=== PATIENT | female | born 1990 | race Hispanic/Latino ===

== ENCOUNTER 2024-06-11 13:08 | Emergency (ER) | payer OTHER ==
[2024-06-11 13:39] LABS: Specific Gravity 1.018 (1.005-1.030)
[2024-06-11 13:42] LABS: Absolute Lymphocytes (CBC) 1.3 K/uL (0.7-4.9); Absolute Monocytes 0.5 K/uL (0.1-1.3); Basophils % 0.4 % (0-1.3); Eosinophils % 0.3 % (0-4.4); Hematocrit 38.7 % (36.0-45.0); Lymphocytes % 13.2 % (15.3-44.8); MCH 20.5 pg (27.0-35.0); MPV 8.6 fL (7.6-11.3); Neutrophils % 81.1 % (41.7-73.7); Platelets 295 thou/uL (152-406); RBC Red Blood Cell Count 5.86 M/uL (3.86-4.86); Red Cell Distribution Width 16.9 % (12.1-15.2); Specific Gravity 1.018 (1.005-1.030); Sqamous Epithelial <5 /HPF (None Seen); Urine Bacteria <20 /HPF (<20); Urine Bilirubin NEGATIVE (Negative); Urine Blood Negative (Negative); Urine Clarity Turbid (Clear); Urine Color Light-Yellow (Yellow); Urine Culture Reflex Order NOT NEEDED; Urine Glucose NEGATIVE (Negative); Urine Ketones TRACE (Negative); Urine Microscopic Reflex YN ORDER UMIC; Urine Mucus Slight /HPF (None Seen); Urine Nitrite NEGATIVE (Negative); Urine Protein NEGATIVE (Negative); Urine RBC <5 /HPF (None Seen); Urine Urobilinogen Normal (Normal); Urine WBC <5 /HPF (<5); Urine WBC Clump Rare /HPF (None Seen)
[2024-06-11 14:10] LABS: Anisocytosis 1+; Blood Morphology Comment NOTED (NOT SEEN); Microcytosis 1+; Ovalocytes 1+; Platelet Estimate ADEQ; White Blood Cell Scan OK (OK)
[2024-06-11 14:13] LABS: Anion Gap 9.5 mEq/L (5.0-15.0); Potassium 3.5 mEq/L (3.5-5.1)
--- NOTE | 2024-06-11 14:29 | RAD REPORT ---
EXAMINATION: Transvaginal OB COMPARISON: None. HISTORY: ABD PAIN TECHNIQUE: Real-time ultrasound was performed through the pelvis. A transvaginal scan was performed t o better visualize the intrauterine contents and adnexa. FINDINGS: There is a single living intrauterine . Cardiac activity measured 119 BPM. There is no visible subchorionic hemorrhage. Both ovaries are visualized and appear unremarkable. There is no free fluid in the cul-de-sac. Measurements and Calculations: Torrey rump length 8 mm, consistent with a sonographic age of 6 weeks, 5 days. Estimated date of deli very is 01/30/2025 IMPRESSION: Single living intrauterine , with a composite sonographic age of 6 weeks, 5 days.
--- NOTE | 2024-06-11 14:40 | ER ---
Nurse's Notes [facility] Name: Joe Macias Age: 34 yrs Sex: Female : 1990 Arrival Date: 06/11/2024 Time: 13:08 Bed 12 Private MD: Diagnosis: Threatened Presentation: 06/11 13:15 Chief complaint: Patient states: Vaginal bleeding and cramping x 1 day, 8 weeks jl7 . 13:15 Coronavirus screen: At this time, the client does not indicate any symptoms associated jl7 with coronavirus-19. Ebola Screen: No symptoms or risks identified at this time. Initial Sepsis Screen: Does the patient meet any 2 criteria? No. Patient's initial sepsis screen is negative. Does the patient have a suspected source of infection? No. Patient's initial sepsis screen is negative. Risk Assessment: Do you want to hurt yourself or someone else? Patient reports no desire to harm self or others. Onset of symptoms was June 10, 2024. 13:15 Method Of Arrival: Ambulatory [facility] 13:15 Acuity: LEILANI 3 jl7 Triage Assessment: 13:22 General: Appears in no apparent distress. uncomfortable, Behavior is calm, cooperative, jl7 appropriate for age. Pain: Complains of pain in right lower quadrant and left lower quadrant Pain currently is 5 out of 10 on a pain scale. Quality of pain is described as crampy. : Reports vaginal bleeding that is spotty. 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 - Infectious Disease History:: Denies. - Social history:: Smoking status: Patient denies any tobacco usage or history of. Screenin:15 [facility] ED Fall Risk Assessment (Adult) History of falling in the last 3 months, rs5 including since admission No falls in past 3 months (0 pts) Confusion or Disorientation No (0 pts) Intoxicated or Sedated No (0 pts) Impaired Gait No (0 pts) Mobility Assist Device Used No (0 pt) Altered Elimination No (0 pt) Score/Fall Risk Level 0 - 2 = Low Risk Oriented to surroundings, Maintained a safe environment. Abuse screen: Denies threats or abuse. Nutritional screening: No deficits noted. Tuberculosis screening: No symptoms or risk factors identified. Assessment: 13:15 General: Appears in no apparent distress. comfortable, Behavior is calm, cooperative. rs5 Pain: Complains of pain in abdomen Pain currently is 3 out of 10 on a pain scale. Quality of pain is described as crampy, Is intermittent. Neuro: Level of Consciousness is awake, alert, obeys commands, Oriented to person, place, time, situation. Cardiovascular: Patient's skin is warm and dry. Respiratory: Airway is patent Respiratory effort is even, unlabored, Respiratory pattern is regular, symmetrical. GI: Abdomen is round non-distended, Abd is soft and non tender X 4 quads. : Reports vaginal bleeding that is. EENT: No signs and/or symptoms were reported regarding the EENT system. 13:15 Derm: Skin is intact, Skin is pink, warm \T\ dry. Musculoskeletal: Range of motion: rs5 intact in all extremities. 13:48 Reassessment: Patient and/or family updated on plan of care and expected duration. Pain rs5 level reassessed. Patient is alert, oriented x 3, equal unlabored respirations, skin warm/dry/pink. 14:33 Reassessment: Patient and/or family updated on plan of care and expected duration. Pain rs5 level reassessed. Patient is alert, oriented x 3, equal unlabored respirations, skin warm/dry/pink. Vital Signs: 13:15 BP 128 / 99; Pulse 68; Resp 17; Pulse Ox 100% ; Weight 77.11 kg; Height 5 ft. 4 in. ; jl7 Pain 5/10; 14:40 BP 127 / 81; Pulse 71; Resp 17; Pulse Ox 99% on R/A; rs5 13:15 Body Mass Index 29.18 (77.11 kg, 162.56 cm) jl7 13:15 Pain Scale: Adult jl7 ED Course: 13:11 Patient arrived in ED. im 13:11 [facility] Esteves [facility]C [facility] kb 13:11 Dino Tatum MD is Attending Physician. kb 13:15 Patient has correct armband on for positive identification. Placed in gown. Bed in low rs5 position. Call light in reach. Side rails up X2. 13:18 Adilson Valdez, RN is Primary Nurse. rs5 13:19 Radiology exam delayed due to test not completed at this time. aa4 13:22 Triage completed. jl7 13:22 Arm band placed on right wrist. jl7 14:11 US Transvaginal Ob In Process Unspecified. EDMS 14:40 Provided Education on: discharge instructions . rs5 14:48 No provider procedures requiring assistance completed. rs5 14:48 IV discontinued, intact, bleeding controlled, No redness/swelling at site. Pressure rs5 dressing applied. Administered Medications: No medications were administered Medication: 14:45 VIS not applicable for this client. rs5 Outcome: 14:40 Discharge ordered by . kb 14:48 Discharged to home rs5 14:48 Condition: stable 14:48 Discharge instructions given to patient, family, Instructed on discharge instructions, follow up and referral plans. Demonstrated understanding of instructions, follow-up care, 14:49 Patient left the ED. aa4 Signatures: Dispatcher [employer] EDAR Kasia Esteves, DATA ENTRY-C DATA ENTRY-CkNeena Peck aa4 Cherie Isbell, RN RN jl7 Adilson Valdez, RN RN rs5 Maria G Steele
--- NOTE | 2024-06-11 14:40 | EDPHYS ---
Physician Documentation [facility] Name: Joe Macias Age: 34 yrs Sex: Female : 1990 Arrival Date: 06/11/2024 Time: 13:08 Bed 12 Private MD: ED Physician Dino Tatum HPI: 06/11 13:27 This 34 yrs old Female presents to ER via Ambulatory with complaints of kb Vaginal Bleeding, + Preg <12wks, Abdominal Cramping. 13:27 Pt is a 34 year old female who presents for spotting and lower abd cramping that kb started yesterday. States she is 8 weeks and was concerned. First ob appt scheduled for 06/25/24. LMP beginning of April 2024. 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 - Infectious Disease History:: Denies. - Social history:: Smoking status: Patient denies any tobacco usage or history of. ROS: 13:27 Constitutional: As per HPI kb Exam: 13:27 Constitutional: This is a well developed, well nourished patient who is awake, alert, kb and in no acute distress. Head/Face: Normocephalic, atraumatic. ENT: Moist Mucous membranes Cardiovascular: Regular rate Respiratory: Respirations even and unlabored. No increased work of breathing. Talking in full sentences Abdomen/GI: Soft, non-tender. No distention Skin: Warm, dry with normal turgor. Normal color. MS/ Extremity: Pulses equal, no cyanosis. Neurovascular intact. Full, normal range of motion. Neuro: Awake and alert, GCS 15, oriented to person, place, time, and situation. Vital Signs: 13:15 BP 128 / 99; Pulse 68; Resp 17; Pulse Ox 100% ; Weight 77.11 kg; Height 5 ft. 4 in. ; jl7 Pain 5/10; 14:40 BP 127 / 81; Pulse 71; Resp 17; Pulse Ox 99% on R/A; rs5 13:15 Body Mass Index 29.18 (77.11 kg, 162.56 cm) jl7 13:15 Pain Scale: Adult jl7 MDM: 13:11 Medical Screening Exam initiated kb 13:27 Differential diagnosis: threatened Ab, ectopic . Data reviewed: vital signs, kb nurses notes. 14:39 Counseling: I had a detailed discussion with the patient and/or guardian regarding the kb historical points, exam findings, and any diagnostic results supporting the discharge/admit diagnosis, lab results, radiology results, the need for outpatient follow up, an OB/Gyne specialist, to return to the emergency department if symptoms worsen or persist or if there are any questions or concerns that arise at home. 06/11 13:11 Order name: Abo/rh Typing; Complete Time: 14:02 kb 06/11 13:11 Order name: Basic Metabolic Panel; Complete Time: 14:15 kb 06/11 13:11 Order name: CBC with Diff; Complete Time: 14:15 kb 06/11 13:11 Order name: Test, Urine; Complete Time: 13:53 kb 06/11 13:11 Order name: Quantitative Hcg; Complete Time: 14:15 kb 06/11 13:11 Order name: Urinalysis w/ reflexes; Complete Time: 13:53 kb 06/11 14:10 Order name: CBC Smear Scan; Complete Time: 14:15 EDMS 06/11 13:11 Order name: US Transvaginal Ob; Complete Time: 14:30 kb 06/11 13:11 Order name: IV Saline Lock; Complete Time: 13:48 kb 06/11 13:11 Order name: Labs collected and sent; Complete Time: 13:48 kb 06/11 13:11 Order name: NPO; Complete Time: 13:48 kb Administered Medications: No medications were administered Disposition Summary: 06/11/24 14:40 Discharge Ordered Notes: Location: Home kb Condition: Stable kb Diagnosis - Threatened kb Followup: kb - With: Emergency Department - When: As needed - Reason: Worsening of condition Followup: kb - With: Private Physician - When: 2 - 3 days - Reason: Recheck today's complaints, Continuance of care, Re-evaluation by your physician Discharge Instructions: - Discharge Summary Sheet kb - Threatened Miscarriage, [id number] kb - Vaginal Bleeding During , First Trimester, [id number] kb Forms: - Medication Reconciliation Form kb - Antibiotic Education kb - Prescription Opioid Use kb - Patient Portal Instructions kb - Leadership Thank You Letter kb Addendum: 06/13/2024 07:11 I was immediately available for consultation during this patient's visit. I did not e c2 personally see the patient or discuss the patient with the CASSANDRA. . Signatures: Dispatcher [employer] EDMS Kasia Esteves FNP-C NITIN-Cherie Lozano RN RN jl7 Dino Tatum MD MD ec2 Corrections: (The following items were deleted from the chart) 06/11 13:12 13:12 ABO/RH TYPING+BB.LAB.BRZ ordered. EDMS EDMS 13:12 13:12 BASIC METABOLIC PANEL+C.LAB.BRZ ordered. EDMS EDMS 13:12 13:12 CBC+H.LAB.BRZ ordered. EDMS EDMS 13:12 13:12 Test, Urine+UC.LAB.BRZ ordered. EDMS EDMS 13:12 13:12 QUANTITATIVE HCG+C.LAB.BRZ ordered. EDMS EDMS 13:12 13:12 Urinalysis+U.LAB.BRZ ordered. EDMS EDMS 13:12 13:12 Transvaginal Ob+US.RAD.BRZ ordered. EDMS EDMS
[2024-06-11 15:59] VITALS: BP 128/99; O2SAT 100
== END 2024-06-11 14:49 | disposition home or self-care (01) ==
LOC: ER 13:08
DX: O20.0 Threatened abortion (principal)
CPT/HCPCS: 36415; 76817; 80048; 81001; 81025; 84702; 85025; 86900; 86901; 99283